=== PATIENT | male | born 1970 | race Caucasian/White ===

== ENCOUNTER 2017-01-07 18:29 | Emergency (ER) | payer MEDICAID ==
[2017-01-07 18:44] VITALS: BP 135/95; PULSE 84; RESP 18; TEMP 98; O2SAT 96
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
== END 2017-01-07 19:02 | disposition home or self-care (01) ==
LOC: CED 18:29
DX: F41.0 Panic disorder [episodic paroxysmal anxiety] (principal); R42 Dizziness and giddiness

== ENCOUNTER 2017-05-18 18:03 | Emergency (ER) | payer MEDICAID ==
[2017-05-18 18:25] VITALS: PULSE 83; RESP 18; TEMP 98.2
--- NOTE | 2017-05-18 19:03 | EDPHY ---
H & P Stated Complaint: panic attack, anxiety, and vertigo started yesterday, has happened before Time Seen by Provider: 05/18/17 18:36 HPI/ROS: Chief Complaint: Anxiety, panic attack, vertigo HPI: 46-year-old male states he has a history of benign positional vertigo. He also history of anxiety and panic attacks. Started having similar symptoms to prior episodes yesterday. States that he is feeling dizzy and nauseated. He has not been vomiting. States he feels generally burning behind his ears, some nausea. Feels spaced out is not sleeping. Does not have any spinning or sensations. He states that in the past he has taken alprazolam and promethazine for the symptoms. He states that he was he has several months ago and was sent home with prescriptions for these. He does not have a primary care doctor. He does not want sees psychiatrist for this. He denies suicidal homicidal ideation at this time. He is not hallucinating. He is also stating that lorazepam does not work for him but diazepam has worked in the past. ROS: 10 point Review of Systems is negative except as noted in the HPI. PMH: Anxiety, benign positional vertigo Social History: No smoking, no alcohol, no recreational drug use Family History: non-contributory Physical Exam: Gen: Awake, Alert, No Distress, anxious, mildly agitated HEENT: Nose: no rhinorrhea Eyes: PERRLA, EOMI, no nystagmus Mouth: Moist mucosa Neck: Supple, no JVD Chest: nontender, lungs clear to auscultation Heart: S1, S2 normal, no murmur Abd: Soft, non-tender, no guarding Back: no CVA tenderness, no midline tenderness Ext: no edema, non-tender Skin: no rash Neuro: CN II-XII intact, Sensation grossly intact, Strength 5/5 in bilateral upper and lower extremities, normal finger-nose, negative Romberg - Medical/Surgical History Hx Asthma: No Hx Chronic Respiratory Disease: No Hx Diabetes: No Hx Cardiac Disease: No Hx Renal Disease: No Hx Cirrhosis: No Hx Alcoholism: No Hx HIV/AIDS: No Hx Splenectomy or Spleen Trauma: No Other PMH: frequent ear infections, anxiety, vertigo - Social History Smoking Status: Never smoked Constitutional: Initial Vital Signs Temperature (C) 36.8 C 05/18/17 18:23 Heart Rate 83 11/02/17 18:23 Respiratory Rate 18 05/18/17 18:23 Blood Pressure 142/98 H 05/18/17 18:23 O2 Sat (%) 96 05/18/17 18:23 O2 Delivery Mode Room Air Allergies/Adverse Reactions: No Known Allergies Allergy (Unverified 05/18/17 18:21) Home Medications: Medication Instructions Recorded Promethazine HCl [Phenergan 12.5mg 12.5 mg PO BID PRN #10 tablet 01/07/17 tab] Alprazolam 05/18/17 Medical Decision Making ED Course/Re-evaluation: Patient is here presenting complaining of anxiety and vertigo type symptoms requesting benzodiazepine medications. I have checked the prescription drug monitoring program, he has had several prescriptions for benzodiazepines filled from different facilities in the last year. Last 1 was in December when he was seen here. I have explained to the patient that it is absolutely vital that he follow up with primary care physician and or a psychiatrist to treat this. If he continues to present to the emergency department requesting benzodiazepines he might be marked for drug-seeking behavior and be limited in what he is able to get. I told him I am willing to send him home with some diazepam to go but I am not going to write him a prescription today. I am referring him to primary care physician for follow-up. I strongly encouraged that he follow up with Psychiatry as well but he is refusing. Patient did not want to comply with my examination but finally agreed to. Is very insistent that only diazepam are alprazolam a work for him. Will send him with take-home pack but no prescriptions at this time. Departure - Departure Disposition: Home, Routine, Self-Care Clinical Impression: Anxiety Condition: Good Instructions: Anxiety (ED) Additional Instructions: Please call tomorrow to make an appoint with primary care physician to continue to treat your anxiety and vertigo symptoms. Return to the emergency department for thoughts of harming herself or others, worsening depression, hallucinations, or any other concerns. Referrals: Shahida Osborn MD [Medical Doctor] - As per Instructions
[2017-05-18] MEDS ORDERED: PROMETHAZINE 25 MG PREPACK #4 BTL TAKEHOME ONE ×2 (19:04)
[2017-05-18] MEDS ORDERED: DIAZEPAM 5 MG PREPACK#4 BTL TAKEHOME ONE ×2 (19:04)
[2017-05-18 19:28] VITALS: BP 120/86; O2SAT 95
== END 2017-05-18 19:27 | disposition home or self-care (01) ==
LOC: CED 18:03
DX: F41.9 Anxiety disorder, unspecified (principal)

== ENCOUNTER 2017-07-31 18:34 | Emergency (ER) | payer MEDICAID ==
[2017-07-31] MEDS ORDERED: PROMETHAZINE HCL 25 MG TAB PO ONE (19:03)
[2017-07-31] MEDS ORDERED: LORazepam 1 MG TAB PO ONE (19:03)
--- NOTE | 2017-07-31 19:04 | EDPHY ---
H & P Stated Complaint: vertigo and panic/anxiety Time Seen by Provider: 07/31/17 18:57 HPI/ROS: CHIEF COMPLAINT: Vertigo, anxiety HISTORY OF PRESENT ILLNESS: Patient is a 47-year-old man who reports a history of benign positional vertigo and anxiety. He states that he is having both of these currently. They began this morning. No headache. No fever. No trauma. No focal deficit or weakness. He states that he ran out of his Xanax and ferritin again which she usually takes for the symptoms at home. He is here asking for a refill. REVIEW OF SYSTEMS: Constitutional: See HPI EENTM: denies: blurred vision, double vision, nose congestion Respiratory: denies: cough, shortness of breath Cardiac: denies: chest pain, irregular heart rate, lightheadedness, palpitations Gastrointestinal/Abdominal: denies: abdominal pain, diarrhea, nausea, vomiting, blood streaked stools Genitourinary: denies: dysuria, frequency, hematuria, pain Musculoskeletal: denies: joint pain, muscle pain Skin: denies: lesions, rash, jaundice, bruising Neurological: denies: headache, numbness, paresthesia, tingling, dizziness, weakness Hematologic/Lymphatic: denies: blood clots, easy bleeding, easy bruising Immunologic/allergic: denies: HIV/AIDS, transplant EXAM: GENERAL: Well-appearing, well-nourished and in no acute distress. HEAD: Atraumatic, normocephalic. EYES: No nystagmus, Pupils equal round and reactive to light, extraocular movements intact, sclera anicteric, conjunctiva are normal. ENT: TMs normal, nares patent, oropharynx clear without exudates. Moist mucous membranes. NECK: Normal range of motion, supple without lymphadenopathy or JVD. LUNGS: Breath sounds clear to auscultation bilaterally and equal. No wheezes rales or rhonchi. HEART: Regular rate and rhythm without murmurs, rubs or gallops. ABDOMEN: Soft, nontender, normoactive bowel sounds. No guarding, no rebound. No masses appreciated. BACK: No CVA tenderness, no spinal tenderness, step-offs or deformities EXTREMITIES: Normal range of motion, no pitting or edema. No clubbing or cyanosis. NEUROLOGICAL: Cranial nerves II through XII grossly intact. Normal speech, normal gait. 5/5 strength, normal movement in all extremities, normal sensation PSYCH: Normal mood, normal affect. SKIN: Warm, dry, normal turgor, no visible rashes or lesions. Source: Patient Exam Limitations: No limitations - Personal History Current Tetanus/Diphtheria Vaccine: Yes - Medical/Surgical History Hx Asthma: No Hx Chronic Respiratory Disease: No Hx Diabetes: No Hx Cardiac Disease: No Hx Renal Disease: No Hx Cirrhosis: No Hx Alcoholism: No Hx HIV/AIDS: No Hx Splenectomy or Spleen Trauma: No Other PMH: frequent ear infections, anxiety, vertigo - Family History Significant Family History: No pertinent family hx - Social History Smoking Status: Never smoked Alcohol Use: Sober Constitutional: Initial Vital Signs Temperature (C) 36.4 C 07/31/17 18:38 Heart Rate 86 07/31/17 18:38 Respiratory Rate 18 07/31/17 18:38 Blood Pressure 112/89 H 07/31/17 18:38 O2 Sat (%) 96 07/31/17 18:38 O2 Delivery Mode Room Air Allergies/Adverse Reactions: No Known Allergies Allergy (Verified 07/31/17 18:37) Home Medications: Medication Instructions Recorded ALPRAZolam 07/31/17 Diazepam [Valium 5 MG (*)] 5 mg PO TID PRN #10 tab 07/31/17 Phenergan 07/31/17 Medical Decision Making ED Course/Re-evaluation: 8:20 p.m. the patient is feeling slightly better. He refused the Phenergan and told the nurse that he is not having any vertigo just the anxiety attack. We will observe him further. Differential Diagnosis: Partial list of the Differential diagnosis considered include but were not limited to; anxiety gout, benign positional vertigo and although unlikely based on the history and physical exam, I also considered the labyrinthitis, intracranial injury, CVA, dissection, infection. I discussed these differential diagnoses and the plan with the patient as well as the usual and expected course. The patient understands that the diagnosis is provisional and that in medicine we are not always correct and that further workup is often warranted. Usual and customary warnings were given. All of the patient's questions were answered. The patient was instructed to return to the emergency department should the symptoms at all worsen or return, otherwise to followup with the physician as we discussed. - Data Points Medications Given: Discontinued Medications Lorazepam (Ativan) 2 mg PO EDNOW ONE Stop: 07/31/17 19:04 Last Admin: 07/31/17 19:13 Dose: 2 mg Promethazine HCl (Phenergan) 25 mg PO EDNOW ONE Stop: 07/31/17 19:04 Last Admin: 07/31/17 20:18 Dose: Not Given Departure - Departure Disposition: Home, Routine, Self-Care Clinical Impression: Anxiety attack Condition: Fair Instructions: Anxiolysis in Adults (ED) Referrals: NONE *PRIMARY CARE P,. [Primary Care Provider] - As per Instructions Prescriptions: Diazepam [Valium 5 MG (*)] 5 mg PO TID PRN #10 tab PRN Reason: Spasms
[2017-07-31 20:36] VITALS: BP 162/96; TEMP 98.6
[2017-07-31 21:20] VITALS: PULSE 97; RESP 16; O2SAT 96
== END 2017-07-31 21:21 | disposition home or self-care (01) ==
DX: F41.9 Anxiety disorder, unspecified (principal)

== ENCOUNTER 2017-10-08 20:45 | Emergency (ER) | payer MEDICAID ==
[2017-10-08 20:51] VITALS: BP 128/90; PULSE 102; RESP 18; TEMP 98.4; O2SAT 94
--- NOTE | 2017-10-08 21:03 | EDPHY ---
General Time Seen by Provider: 10/08/17 20:56 Narrative: CHIEF COMPLAINT: Right groin pain after jumping off a roof HISTORY OF PRESENT ILLNESS: Patient complains of severe right groin pain after jumping off a roof. This happened approximately 2 hr ago. He said he felt and heard a pop. Sudden onset of severe pain in the right groin that has been constant. Worse with any kind of movement or palpation. Minimal improvement rest. Does not radiate. No numbness or tingling. No weakness. Painful ambulatory status but able to move the leg he has no low back, mid back or upper back pain of any kind. He has no saddle anesthesia. No chest pain or shortness of breath. No abdominal pain. No head strike or loss of conscious. No headache or neck pain. He denies any pain or injury anywhere else other than the right groin. He is declining pain medication at this time. No other associated or modifying factors. REVIEW OF SYSTEMS: Ten systems reviewed and are negative unless otherwise noted in the HPI PCP: [facility] prior. No current care SPECIALISTS: None PAST MEDICAL HISTORY: Previously diagnosed vertigo and questionably panic attacks PAST SURGICAL HISTORY: No recent surgeries SOCIAL HISTORY: Nonsmoker. No drug or alcohol use. Works as a van helper FAMILY HISTORY: Noncontributory EXAMINATION General Appearance: Alert, no distress, appears to be in discomfort Head: normocephalic, atraumatic Eyes: Pupils equal and round, no conjunctival pallor or injection ENT, Mouth: Mucous membranes moist Neck: Normal inspection, supple, non-tender. No crepitus, step-off or deformity. Respiratory: Lungs are clear to auscultation. No wheezing rhonchi or crackles Cardiovascular: Tachycardic rate of 102 beats per minute. Regular rhythm. No murmur. Right femoral pulses palpable and symmetric to the left. There is no bruit Gastrointestinal: Abdomen is soft and nontender. No tympany rigidity. No guarding. No CVA tenderness. Back: No midline tenderness at any level of the spine. There is no crepitus or deformity. Neurological: A&O, nonfocal, study but antalgic gait. Strength is symmetric in the knees, ankles. There is no foot drop on the right. There is normal proprioception of the right great toe. Skin: Warm and dry, no rash. No petechiae or purpura. No ecchymosis. No laceration or puncture. Extremities: Significant tenderness of the right groin. There is no tenderness of the upper pelvis, right greater trochanter. Range of motion of the right hip is difficult to test due to pain but he is able to range it. It is less painful with passive range of motion. There is symmetric range of motion of the ankles and knees. There is no tenderness with firm palpation of either calcaneus. Psychiatric: Mood and affect normal DIFFERENTIAL DIAGNOSES: Including but not limited to strain, sprain, fracture of the hip, acetabular fracture, pelvic fracture MDM: 9:00 p.m. Right groin and hip pain after jumping off of a roof while doing Park[employer]. He does have pain in the right inguinal canal. He has no pain over the greater trochanter or upper pelvis. His pelvis is stable. He has no tenderness at any level of the midline. No numbness or tingling. No weakness. No pain in the right knee, ankle, cazares or calcaneus pin vital signs are stable with mild tachycardia but he is declining pain medication at this time. I have ordered x- ray of the hip and pelvis. 9:50 p.m. X-ray has been read as no acute findings at, but there are chronic changes that appear to be stable from previous x-ray. I have re-evaluated the patient he still has difficulty ambulating due to severe pain, thus I will proceed with CT scan of the hip to rule out occult fracture. I have low clinical suspicion for this. Higher clinical suspicion for soft tissue injury. His abdominal exam remains benign with no hip or pelvic pain of any kind. 11:30 p.m. Patient re-evaluated. He has had is CT scan performed I have reviewed the images without the aid of the radiologist. I do not appreciate obvious fracture. I will wait for the interpretation. He is declining pain medication 12:10 a.m. Case discussed with radiologist Dr. Ellington. No obvious fracture. There are multiple areas of osteoarthritic changes consistent with bone spurs. I have informed the patient of this. He would like to go home. He is ambulating with crutches without difficulty. We did discuss possibility of soft tissue injury versus is occult fracture that is not yet obtained by CT. He may need an MRI of the hip if his symptoms do not improve. He is willing to assume this risk and would like to go home on crutches. We discussed mandatory follow up with Orthopedics for definitive care. We discussed ED precautions for worsening pain , numbness, tingling, weakness. He is declining any kind of pain medication or anti-inflammatories this time. He has instructions to contact this hospital she would have difficulty obtaining appointment. Discharged home stable condition. 12:15 a.m. Notified by RN that the patient has left without his paperwork. I have provided him the phone number to the ER we will attempt to contact him with his discharge paperwork. SUPERVISION: Patient was independently examined, but I discussed the case with my secondary supervising physician Dr. Salinas - Diagnostics Imaging Results: Imaging Impressions Hip X-Ray 10/08/17 21:03 Impression: There is no acute osseous abnormality identified. If there is a high clinical concern regarding an occult fracture, either CT or MR imaging could be considered. Extremity CT 10/08/17 21:48 Impression: There is no acute osseous abnormality identified. Nonetheless, if there is further progression of the patient's pain, MR imaging is suggested. Findings were discussed with Aly Gan PA-C at 12:07 AM, on 10/09/2017. - History Smoking Status: Never smoked - Objective Vital Signs: Initial Vital Signs Temperature (C) 98.4 F 10/08/17 20:48 Heart Rate 102 H 10/08/17 20:48 Respiratory Rate 18 10/08/17 20:48 Blood Pressure 128/90 H 10/08/17 20:48 O2 Sat (%) 94 10/08/17 20:48 O2 Delivery Mode Room Air Allergies/Adverse Reactions: No Known Allergies Allergy (Verified 07/31/17 18:37) Home Medications: Medication Instructions Recorded Diazepam [Valium 5 MG (*)] 5 mg PO TID PRN #10 tab 07/31/17 Departure - Departure Disposition: Home, Routine, Self-Care Clinical Impression: Sprain of right hip Qualifiers: Encounter type: initial encounter Qualified Code(s): S73.101A - Unspecified sprain of right hip, initial encounter Osteoarthritis of hip Qualifiers: Osteoarthritis type: unspecified Laterality: right Qualified Code(s): M16.11 - Unilateral primary osteoarthritis, right hip Condition: Good Instructions: Osteoarthritis (ED), Hip Sprain (ED) Additional Instructions: 1. Minimal weight-bearing on last completely pain-free with crutches as provided 2. Contact the on-call orthopedist Dr. Florez as discussed for mandatory outpatient orthopedic follow-up 3. ED precautions as discussed Referrals: Marcio Florez MD [Medical Doctor] - As per Instructions [facility],. [Clinic] - As per Instructions
--- NOTE | 2017-10-10 19:22 | ASMTCMCOM ---
CM Note CM Note Notes: Late Entry: from 10/09/17: Received a note from overnight ED staff re:pt forgetting to take his discharge paperwork with him and the listed phone # was invalid. This CM spoke with [facility] and they said pt is an open patient with them and provided an alternate # to try: . Spoke with patient and he said he realized he forgot his DC instructions but that he was provided the doctors name and # so he didnt return for them. Due to poor cell phone osteologist the call was dropped. This CM reached back out to [facility] to see if they could also reach out to patient and schedule a follow-up appt and also assist with getting pt follow up with Dr Florez or another note specialist. Today, received multiple calls back and forth with Homeless Outreach RN (Amelia? due to [place] being on vacation) at [facility] ([phone] or [phone]) but we were never able to actually connect. This CM's last message left was that unless Amelia or other staff needed to provide or get additional specification information, it is probably okay to just have PC continue to reach out to patient and assist with follow up. Confirmed that PC is able to electronically access & view pt's ED visit report and discharge instructions. CM available for further assistance if needed. Date Signed: 10/10/2017 07:21 PM Electronically Signed By:Mandie Venegas RN
== END 2017-10-09 00:30 | disposition home or self-care (01) ==
DX: S73.101A Unspecified sprain of right hip, initial encounter (principal); M16.11 Unilateral primary osteoarthritis, right hip; X58.XXXA Exposure to other specified factors, initial encounter; Y99.8 Other external cause status; Y93.39 Activity, other involving climbing, rappelling and jumping off

== ENCOUNTER 2018-06-23 19:06 | Emergency (ER) | payer MEDICAID ==
[2018-06-23 19:20] VITALS: BP 129/93
--- NOTE | 2018-06-23 19:32 | EDPHY ---
H & P Stated Complaint: Chronic vertigo-out of valium Time Seen by Provider: 06/23/18 19:12 HPI/ROS: Chief Complaint: Vertigo, requesting Valium HPI: 48-year-old male who says he has a history of vertigo and panic attacks. He states that he woke this morning with some dizziness and has been feeling shaky and panicky all day. He says that when he gets these attacks he takes diazepam which is the only medication at work for him. He says that he does not see a primary care physician for this because they have wanted him to follow up with Psychiatry which she does not believe is necessary. He states that he believes this is a simple"chemical imbalance"that the diazepam helps him with. He denies any nausea or vomiting. No headaches. He is ambulating without any difficulty. He states he gets several tacks like this every year for which he gets prescriptions for Valium. He has not followed up with primary care physician. He does not feel he needs to be on any chronic pain medication. ROS: 10 systems were reviewed and were negative except those elements noted in the HPI. PMH: Vertigo, panic attack Social History: No smoking, no alcohol, no recreational drug use Family History: non-contributory Physical Exam: Gen: Awake, Alert, No Distress HEENT: Nose: no rhinorrhea Eyes: PERRLA, EOMI, no nystagmus Mouth: Moist mucosa Neck: Supple, no JVD Chest: No distress Heart: Normal perfusion Abd: Normal inspection Skin: no rash Neuro: CN II-XII intact, Sensation grossly intact, Strength 5/5 in bilateral upper and lower extremities - Personal History Current Tetanus/Diphtheria Vaccine: Unsure Current Tetanus Diphtheria and Acellular Pertussis (TDAP): Unsure - Medical/Surgical History Hx Asthma: No Hx Chronic Respiratory Disease: No Hx Diabetes: No Hx Cardiac Disease: No Hx Renal Disease: No Hx Cirrhosis: No Hx Alcoholism: No Hx HIV/AIDS: No Hx Splenectomy or Spleen Trauma: No Other PMH: frequent ear infections, anxiety, vertigo. - Social History Smoking Status: Never smoked Constitutional: Initial Vital Signs Temperature (C) 36.6 C 06/23/18 19:16 Heart Rate 74 06/23/18 19:16 Respiratory Rate 18 06/23/18 19:16 Blood Pressure 129/93 H 06/23/18 19:16 O2 Sat (%) 95 06/23/18 19:16 O2 Delivery Mode Room Air Allergies/Adverse Reactions: No Known Allergies Allergy (Verified 06/23/18 19:15) Home Medications: Medication Instructions Recorded Diazepam [Valium 5 MG (*)] 5 mg PO TID PRN #10 tab 07/31/17 Medical Decision Making ED Course/Re-evaluation: I have reviewed the patient's record in both [facility] and the prescription drug monitoring program. The patient has had 6 different prescriptions for Valium in the last year. Each was written from a different hospital by a different physician and filled at a different pharmacy. I have also reviewed his records in [facility]. Patient was last seen at [facility] last month. It was noted that during that presentation the treating physician did not feel that benzodiazepines were appropriate treatment at that time for the patient's muscle aches. The patient during that visit became belligerent and profane with the staff at [facility] and left the emergency department. I have discussed with the patient offered him some meclizine for his symptoms that he says her benign positional vertigo. The patient is refusing. I have told the patient that I am reluctant to give him any benzodiazepines as he is having a recurrent symptoms over the last year but is not following up with primary care physician or following their advice. He is going to multiple providers and getting prescriptions for benzodiazepines at multiple pharmacies. When I instructed the patient that I did not intend to give him any benzodiazepines he became angry and belligerent. He told me that I needed to "do your fucking job you piece of shit". I have offered him other medicines to treat his symptoms. He has since certainly no distress. Patient states he has no interest in any other treatments any has no intention of following up with primary care physician. He left the emergency department without receiving discharge instructions or without any further treatment. Departure - Departure Disposition: Home, Routine, Self-Care Clinical Impression: Vertigo Condition: Good Instructions: Vertigo (ED) Additional Instructions: Follow up with primary care physician for further care of your chronic medical problem. Referrals: [facility],. [Clinic] - As per Instructions
== END 2018-06-23 19:35 | disposition left against medical advice (07) ==
LOC: CED 19:06
DX: R42 Dizziness and giddiness (principal)

== ENCOUNTER 2018-08-22 15:30 | Emergency (ER) | payer MEDICAID, OTHER ==
[2018-08-22 15:38] VITALS: BP 106/82
--- NOTE | 2018-08-22 15:48 | EDPHY ---
H & P Stated Complaint: panic/anxiety out of meds trying to get referral Source: Patient Exam Limitations: No limitations - Personal History Current Tetanus Diphtheria and Acellular Pertussis (TDAP): Yes - Medical/Surgical History Hx Asthma: No Hx Chronic Respiratory Disease: No Hx Diabetes: No Hx Cardiac Disease: No Hx Renal Disease: No Hx Cirrhosis: No Hx Alcoholism: No Hx HIV/AIDS: No Hx Splenectomy or Spleen Trauma: No Other PMH: frequent ear infections, anxiety, vertigo. - Social History Smoking Status: Never smoked Time Seen by Provider: 08/22/18 15:40 HPI/ROS: HPI: This is a 48-year-old male who presents with Chief Complaint: panic/anxiety out of meds trying to get referral Location: psych Quality: Panic attacks, anxiety, out of medication Duration: Several weeks Signs and Symptoms: no auditory hallucinations, no visual hallucinations, no suicidal ideation with a plan, no homicidal ideation, no paranoia Timing: Acute on chronic Severity: Moderate to severe Context: Has a history of anxiety and benign positional vertigo with TMJ presents from [facility] requesting benzodiazepines for his anxiety and panic attacks. Patient reports that for 10 years he took 0.5 mg Xanax twice a day. In 2013 he stop taking the medication and did fine for approximately 4 years. He reports that last year in 2018 he started to experience anxiety and his panic attacks have become more frequent. [facility] to [facility] and had laboratory studies drawn. He was then directed to [facility] on Monday for further evaluation and medication management. He reports that he cannot wait until Monday and feels extremely anxious. He is requesting Valium. Modifying Factors: None Comment: ROS: A comprehensive 10 system review of systems is otherwise negative aside from elements mentioned in the history of present illness. MEDICAL/SURGICAL/SOCIAL HISTORY: Medical history: frequent ear infections, anxiety, vertigo. Surgical history: Denies Social history: Never smoked. Employed. Family history noncontributory. CONSTITUTIONAL: Adult middle-aged male, nontoxic in appearance, repeat P daily shaking leg up and down and arms folded across chest, awake and alert, no obvious distress HEENT: Atraumatic and normocephalic, PERRL, EOMI. Nares patent; no rhinorrhea; no nasal mucosal edema. Tympanic membranes clear. Oropharynx clear, no exudate and moist pink mucosa. Airway patent. No lymphadenopathy. No meningismus. Cardiovascular: Normal S1/S2, regular rate, regular rhythm, without murmur rub or gallop. PULMONARY/CHEST: Symmetrical and nontender. Clear to auscultation bilaterally. Good air movement. No accessory muscle usage. ABDOMEN: Soft, nondistended, nontender, no rebound, no guarding, no peritoneal signs, no masses or organomegaly. No CVAT. EXTREMITIES: 2/2 pulses, strength 5/5, no deformities, no clubbing, no cyanosis or edema. NEUROLOGICAL: no focal neuro deficits. GCS 15. SKIN: Warm and dry, no erythema. no rash. Good capillary refill. PSYCH: Wear eye contact, no flight of ideas, organized thought process, fair insight and judgment, no auditory hallucinations, no visual hallucinations, no suicidal ideation with a plan, no homicidal ideation, no paranoia ([place]) Constitutional: Initial Vital Signs Temperature (C) 36.5 C 08/22/18 15:35 Heart Rate 77 08/22/18 15:35 Respiratory Rate 18 08/22/18 15:35 Blood Pressure 106/82 H 08/22/18 15:35 O2 Sat (%) 95 08/22/18 15:35 O2 Delivery Mode Room Air Allergies/Adverse Reactions: No Known Allergies Allergy (Verified 08/22/18 15:35) Home Medications: Medication Instructions Recorded Diazepam [Valium 5 MG (*)] 5 mg PO TID PRN #10 tab 07/31/17 ALPRAZolam 08/22/18 Medical Decision Making ED Course/Re-evaluation: Vital signs reviewed and stable. No signs of benzodiazepine withdrawal. Does not meet [address] or [facility] criteria. Case management consult. [facility] but unable to confirm appointment with [facility] on Monday and in fact was just refer to the walk-in clinic. Patient was offered the crisis Clinic and he adamantly declined. I offered him 1 dose of Ativan 1 mg as a rescue medication in the emergency room and he reports that this does not work for him and that he will not take it. I advised that I will not prescribe his chronic anxiety medication. Patient became extremely belligerent and upset. Advised he only wants clonazepam. 1635: Patient angrily stormed out of the emergency room while I was talking to him. This patient was seen under the supervision of my secondary supervising physician. I evaluated care for this patient attending. Discussed this patient with Dr. Leon. (Gabbie Wood) I did not see this patient while he was in the emergency department. However his care was discussed with the PA while the patient was in the department. I agree with treatment plan and management (Antoine Leon) Differential Diagnosis: Differential diagnosis includes but is not limited to major depression, anxiety disorder, schizophrenia, bipolar disorder, intoxicant use, suicidal ideation, psychosis, jessie. (Gabbie Wood) Departure - Departure Disposition: Home, Routine, Self-Care Clinical Impression: Has run out of medications, Generalized anxiety disorder with panic attacks Condition: Good Instructions: Anxiety (ED) Additional Instructions: Please go to the Crisis Center at any time if you feel unsafe. Please make an appointment with [facility] to establish mental health and discuss further interventions. Referrals: [facility],. [Clinic] - As per Instructions
--- NOTE | 2018-08-22 16:45 | ASMTCMCOM ---
CM Note CM Note Notes: CM asked to meet with patient regading plans for follow up care with prescriptions/PCP. Chart reviewed and history of frequent ED visits, multiple provider prescriptions for Benzodiazapines noted. This CM met with patient after confirming with Elena at [facility] that patient is an active patient at [facility] and had an appointment today with Afia Viveros today at 1420. Patient acknowledges this appointment and states that he has another appointment scheduled with [facility] at [facility] for August 27 and that he just needs a prescription to get him through to this appointment. Patient has paperwork with him for [facility] that clearly has walk in hours hand written for Monday, but no appointment time. Patient explains further that he does not want to see a psychiatrist because he does need need to be on medication all the time. "These panic attacks and chemical imbalances only happen once in a while. They are physical, not behavioral issues". To this I responed that he should follow up with his PCP at [facility] and/or the referral to [facility] that he was provided. I offered to provide transportation to the [facility] crisis center and explained that the ED would not be providing any prescriptions for benzodiazapines. Patient became more upset with this and left ED prior to receiving discharge paperwork, etc. CM available prn Date Signed: 08/22/2018 04:45 PM Electronically Signed By:Marybel Valiente RN
== END 2018-08-22 16:30 | disposition home or self-care (01) ==
DX: F41.1 Generalized anxiety disorder (principal); F41.0 Panic disorder [episodic paroxysmal anxiety]